=== PATIENT | male | born 1970 | race Caucasian/White ===

== ENCOUNTER 2018-03-04 21:55 | Inpatient (IN) | payer BC, OTHER ==
[~2018-03-04] VITALS: Ht 175.3 cm; Wt 107.8 kg
[2018-03-04] MEDS ORDERED: LACTATED RINGERS 1,000 ML IV ONE (22:20)
[2018-03-04] MEDS ORDERED: KETOROLAC 30 MG/ML VIAL IVP STA (22:20)
[2018-03-04] MEDS ORDERED: AMOX500C2 PO (22:22)
[2018-03-04] MEDS ORDERED: METR500T21 PO (22:22)
[2018-03-04 22:29] LABS: BASOPHILS % (AUTO) 0 % (0-10); EOSINOPHILS % (AUTO) 0 % (0-10); HEMATOCRIT 41 % (40-54); HEMOGLOBIN 14.3 G/DL (13.3-17.7); LYMPHOCYTES # (AUTO) 0.8 X 10^3 (1.0-4.0); LYMPHOCYTES % (AUTO) 6 % (12-44); MEAN CORPUSCULAR HEMOGLOBIN 30 PG (25-34); MEAN CORPUSCULAR HGB CONC 35 G/DL (32-36); MEAN CORPUSCULAR VOLUME 84 FL (80-99); MEAN PLATELET VOLUME 10.2 FL (7.4-10.4); MONOCYTES # (AUTO) 1.2 X 10^3 (0.0-1.0); MONOCYTES % (AUTO) 10 % (0-12); NEUTROPHILS # (AUTO) 10.4 X 10^3 (1.8-7.8); NEUTROPHILS % (AUTO) 84 % (42-75); PLATELET COUNT 286 10^3/uL (130-400); RED BLOOD COUNT 4.84 10^6/uL (4.35-5.85); RED CELL DISTRIBUTION WIDTH 12.1 % (10.0-14.5); WHITE BLOOD COUNT 12.3 10^3/uL (4.3-11.0)
[2018-03-04] MEDS ORDERED: CLINDAMYCIN 900 MG/50 ML IVPB 50 ML IV ONE (22:30)
[2018-03-04 22:46] LABS: ALANINE AMINOTRANSFERASE 15 U/L (0-55); ALBUMIN 3.8 GM/DL (3.2-4.5); ALKALINE PHOSPHATASE 106 U/L (40-136); BILIRUBIN,TOTAL 0.8 MG/DL (0.1-1.0); BUN/CREATININE RATIO 8; CALCIUM 9.7 MG/DL (8.5-10.1); CARBON DIOXIDE 15 MMOL/L (21-32); CHLORIDE 100 MMOL/L (98-107); CREATININE SERUM 0.93 MG/DL (0.60-1.30); GFR ESTIMATED > 60; POTASSIUM 4.2 MMOL/L (3.6-5.0); SODIUM 133 MMOL/L (135-145); TOTAL PROTEIN 7.7 GM/DL (6.4-8.2)
[2018-03-04 22:48] LABS: GLUCOSE 434 MG/DL (70-105)
[2018-03-04] MEDS ORDERED: NS IV 1000 ML 1,000 ML IV ONE (22:49)
[2018-03-04 22:51] LABS: BAND NEUTROPHILS 7 %; BASOPHILS % (MANUAL) 0 %; EOSINOPHILS % (MANUAL) 0 %; LYMPHOCYTES % (MANUAL) 7 %; MONOCYTES % (MANUAL) 6 %; NEUTROPHILS % (MANUAL) 80 %; RBC MORPH NORMAL
[2018-03-04] MEDS ORDERED: IOHEXOL 350 MG/ML 100 ML (OMNIPAQUE 350) VIAL IV ONE (23:00)
[2018-03-04] MEDS ORDERED: inSUlin (REGULAR) HUMAN 1 UNIT/0.01 ML (CHARGE PER UNIT) IV ONE (23:00)
[2018-03-04] MEDS ORDERED: NS 250 ML (IVPB) BAG IV ONE (23:00)
[2018-03-04 23:08] LABS: AMYLASE 15 U/L (25-125); LIPASE < 4 U/L (8-78)
[2018-03-04 23:19] LABS: ABG BASE EXCESS -6.1 MMOL/L (-2.5-2.5); ABG OXYGEN SATURATION 94 % (94-100); ABG PCO2 36 MMHG (35-45); ABG PO2 69 MMHG (79-93); ABG TCO2 19.9 MMOL/L (21.0-31.0)
[2018-03-04 23:21] LABS: ABG PH 7.33 (7.37-7.43); ALLENS TEST POSITIVE
[2018-03-04 23:22] LABS: INSPIRED O2 ROOM AIR; PATIENT TEMP 97.9; VENTILATOR NO
--- NOTE | 2018-03-04 23:56 | ED EENT ---
History of Present Illness General Chief Complaint: Dental Problems/Pain Stated Complaint: MOUTH INFECTION;FEVER Nursing Triage Note: c/o dental infection. patient reports being evaluated by dentist and having tooth removed and abscess drained. patient stated facial swelling keeps getting worse Source: patient, spouse Exam Limitations: no limitations History of Present Illness Date Seen by Provider: Mar 04, 2018 Time Seen by Provider: 22:20 Initial Comments PT ARRIVES VIA POV FROM HOME PT HAS HAD A "BAD TOOTH" FOR MANY MONTHS, HAS HAD INTERMITTENT PAIN IN TOOTH. PAIN HAS INCREASED AND BECOME CONSTANT A WEEK AGO NOTICED SUBJECTIVE FEVER/SWEATS/CHILLS SINCE FRIDAY--TOOK IBUPROFEN, BUT NONE SINCE FRIDAY HAS HAD NAUSEA SINCE FRIDAY BEGAN HAVING SWELLING TO LEFT SIDE OF FACE ON Friday03/01/18 SAW DENTIST AT [facility] ON FRIDAY, FRIDAY AND AGAIN TODAY HAS HAD 2 SHOTS OF ROCEPHIN WAS STARTED ON AMOXIL 500 MG TID ON FRIDAY ON FRIDAY, I&D WAS DONE AND A DRAIN PLACED, AND FLAGYL WAS ADDED TODAY TOOTH #19 WAS REMOVED, DRAIN REMOVED AND FLAGYL DOSE WAS DOUBLED. DENTIST CALLED TO CHECK ON PT THIS EVENING AND TOLD HER THAT HE JUST DID NOT FEEL GOOD AND WAS HAVING INCREASED SWELLING, SO WAS ADVISED TO GO TO ER. DENTIST CALLED PRIOR TO PT'S ARRIVAL AND INFORMED OF ALL OF THE ABOVE PT HAS BEEN ON ARP SINCE FRIDAY WELL, DOSE WAS INCREASED YESTERDAY. LAST DOSE WAS AT 2000 TONIGHT AND TOOK 2 PILLS. PCP: LATISHA---RARELY GOES THERE, ONLY GOES WHEN HE HAS A PROBLEM. HAS NEVER HAD A WELLNESS EXAM OR LAB Allergies and Home Medications Allergies Coded Allergies: No Known Drug Allergies (Unverified , 03/04/18) Patient Home Medication List Home Medication List Reviewed: Yes Review of Systems Constitutional: see HPI, chills, diaphoresis, fever, malaise Eyes: No Symptoms Reported Ears: No Symptoms Reported Nose: no symptoms reported Mouth: see HPI, pain, swelling Throat: no symptoms reported Respiratory: no symptoms reported Cardiovascular: no symptoms reported Gastrointestinal: see HPI; No abdominal pain; loss of appetite, nausea; No vomiting Musculoskeletal: no symptoms reported Skin: no symptoms reported Neurological: No Symptoms Reported Hematologic/Lymphatic: No Symptoms Reported Immunological/Allergic: no symptoms reported Past Abykrjj-Rpculg-Qsolbq Hx Patient Social History Alcohol Use: Occasionally Uses Recreational Drug Use: No Smoking Status: Former Smoker (OCCASIONALLY SMOKED IN THE PAST) Recent Foreign Travel: No Contact w/Someone Who Travel: No Recent Infectious Disease Expo: No Physical Abuse: No Sexual Abuse: No Past Medical History Surgeries: Yes (RIGHT INGUINAL HERNIA--AGE 5 ; EYE SURGERY--AGE 5) Abdominal, Adenoidectomy, Eye Surgery, Tonsillectomy Respiratory: No Cardiac: No Neurological: No Genitourinary: No Gastrointestinal: No Musculoskeletal: No Endocrine: No HEENT: No Cancer: No Psychosocial: No Nursing Suicide Risk Score: 0 Integumentary: No Blood Disorders: No Family Medical History Diabetes (MOM) Physical Exam Vital Signs Vital Signs - First Documented 03/04/18 22:14 Temp 97.9 Pulse 122 Resp 18 B/P (MAP) 128/95 (106) Pulse Ox 94 General Appearance: WD/WN, no apparent distress Eyes: bilateral eye normal inspection, bilateral eye PERRL, bilateral eye EOMI , bilateral eye other (GLASSES) Ears: bilateral ear auricle normal, bilateral ear canal normal, bilateral ear TM normal Nose: normal inspection Mouth/Throat: dental tenderness; No excessive drooling; trismus, other ( MASSIVE SWELLING TO LEFT SIDE OF FACE; EXTRACTION SITE TO LEFT LOWER FIRST MOLAR AREA WITH SIGNIFICANT SURROUNDING EDEMA AND ERYTHEMA. SWELLING TO LEFT SUBLINGUAL AREA. REST OF EXAM IS VERY LIMITED DUE TO PT NOT BEING ABLE TO OPEN MOUTH VERY MUCH. 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, no motor/sensory deficits, alert, normal mood/affect, oriented x 3 Skin: normal color, diaphoresis, other (WARM) Progress/Results/Core Measures Results/Orders Lab Results Laboratory Tests Test 03/04/18 22:20 03/04/18 23:10 Range/Units White Blood Count 12.3 H 4.3-11.0 10^3/uL Red Blood Count 4.84 4.35-5.85 10^6/uL Hemoglobin 14.3 13.3-17.7 G/DL Hematocrit 41 40-54 % Mean Corpuscular Volume 84 80-99 FL Mean Corpuscular Hemoglobin 30 25-34 PG Mean Corpuscular Hemoglobin Concent 35 32-36 G/DL Red Cell Distribution Width 12.1 10.0-14.5 % Platelet Count 286 130-400 10^3/uL Mean Platelet Volume 10.2 7.4-10.4 FL Neutrophils (%) (Auto) 84 H 42-75 % Lymphocytes (%) (Auto) 6 L 12-44 % Monocytes (%) (Auto) 10 0-12 % Eosinophils (%) (Auto) 0 0-10 % Basophils (%) (Auto) 0 0-10 % Neutrophils # (Auto) 10.4 H 1.8-7.8 X 10^3 Lymphocytes # (Auto) 0.8 L 1.0-4.0 X 10^3 Monocytes # (Auto) 1.2 H 0.0-1.0 X 10^3 Eosinophils # (Auto) 0.0 0.0-0.3 10^3/uL Basophils # (Auto) 0.0 0.0-0.1 10^3/uL Neutrophils % (Manual) 80 % Lymphocytes % (Manual) 7 % Monocytes % (Manual) 6 % Eosinophils % (Manual) 0 % Basophils % (Manual) 0 % Band Neutrophils 7 % Blood Morphology Comment NORMAL Sodium Level 133 L 135-145 MMOL/L Potassium Level 4.2 3.6-5.0 MMOL/L Chloride Level 100 98-107 MMOL/L Carbon Dioxide Level 15 L 21-32 MMOL/L Anion Gap 18 H 5-14 MMOL/L Blood Urea Nitrogen 7 7-18 MG/DL Creatinine 0.93 0.60-1.30 MG/DL Estimat Glomerular Filtration Rate > 60 BUN/Creatinine Ratio 8 Glucose Level 434 *H 70-105 MG/DL Lactic Acid Level 1.15 0.50-2.00 MMOL/L Calcium Level 9.7 8.5-10.1 MG/DL Total Bilirubin 0.8 0.1-1.0 MG/DL Aspartate Amino Transf (AST/SGOT) 19 5-34 U/L Alanine Aminotransferase (ALT/SGPT) 15 0-55 U/L Alkaline Phosphatase 106 40-136 U/L Total Protein 7.7 6.4-8.2 GM/DL Albumin 3.8 3.2-4.5 GM/DL Amylase Level 15 L 25-125 U/L Lipase < 4 L 8-78 U/L Blood Gas Puncture Site LEFT RADIAL Blood Gas Patient Temperature 97.9 Arterial Blood pH 7.33 *L 7.37-7.43 Arterial Blood Partial Pressure CO2 36 35-45 MMHG Arterial Blood Partial Pressure O2 69 L 79-93 MMHG Arterial Blood HCO3 19 L 23-27 MMOL/L Arterial Blood Total CO2 19.9 L 21.0-31.0 MMOL/L Arterial Blood Oxygen Saturation 94 94-100 % Arterial Blood Base Excess -6.1 L -2.5-2.5 MMOL/L Maximilian Test POSITIVE Blood Gas Ventilator Setting NO Blood Gas Inspired Oxygen ROOM AIR My Orders Orders - BETHANIE NORWOOD DO Saline Lock/Iv-Start (03/04/18 22:20) Cbc With Automated Diff (03/04/18 22:20) Comprehensive Metabolic Panel (03/04/18 22:20) Lactic Acid Analyzer (03/04/18 22:20) Blood Culture (03/04/18 22:20) Saline Lock/Iv-Start (03/04/18 22:20) Lactated Ringers (Lr 1000 Ml Iv Solution (03/04/18 22:20) Ketorolac Injection (Toradol Injection) (03/04/18 22:20) Clindamycin 900 Mg/50 Ml Ivpb (Cleocin P (03/04/18 22:30) Ct Maxillofacial W (03/04/18 22:20) Manual Differential (03/04/18 22:20) Amylase (03/04/18 22:49) Arterial Blood Gas (03/04/18 22:49) Lipase (03/04/18 22:49) Saline Lock/Iv-Start (03/04/18 22:49) Ns Iv 1000 Ml (Sodium Chloride 0.9%) (03/04/18 22:49) Insulin (Regular) Human (Humulin R (Per (03/04/18 23:00) Iohexol Injection (Omnipaque 350 Mg/Ml 1 (03/04/18 23:00) Ns (Ivpb) (Sodium Chloride 0.9%) (03/04/18 23:00) Hemoglobin A1c (03/04/18 23:08) Arterial Blood Draw (03/04/18 23:10) Medications Given in ED Current Medications Medications Dose Ordered Sig/Miguel Route Start Time Stop Time Status Last Admin Dose Admin Clindamycin Phosphate/Dextrose 50 ml @ 100 mls/hr ONCE ONCE IV 03/04/18 22:30 03/04/18 22:59 DC 6/20/18 23:01 100 MLS/HR Insulin Human Regular 20 unit ONCE ONCE IV 03/04/18 23:00 03/04/18 23:01 UNV 03/04/18 23:23 20 UNIT Iohexol 100 ml ONCE ONCE IV 03/04/18 23:00 03/04/18 23:01 UNV 03/04/18 22:53 100 ML Lactated Ringer's 1,000 ml @ 0 mls/hr Q0M ONCE IV 03/04/18 22:20 03/04/18 22:22 DC 03/04/18 22:28 0 MLS/HR Sodium Chloride 80 ml ONCE ONCE IV 03/04/18 23:00 03/04/18 23:01 UNV 03/04/18 22:53 80 ML Sodium Chloride 1,000 ml @ 0 mls/hr Q0M ONCE IV 03/04/18 22:49 03/04/18 22:50 UNV 03/04/18 23:22 0 MLS/HR Vital Signs/I&O 03/04/18 22:14 Temp 97.9 Pulse 122 Resp 18 B/P (MAP) 128/95 (106) Pulse Ox 94 Blood Pressure Mean: 106 Progress Progress Note : Progress Note NO DETERIORATION IN PT'S CONDITION DURING ER STAY PAIN IMPROVED WITH TORADOL Diagnostic Imaging Comments CT MAXILLOFACIALS--LEFT SUBMANDIBULAR FLUID AND AIR APPROXIMATELY 4 CM, CONCERNING FOR ABSCESS. FLUID/AIR EXTENDS INTO THE LEFT MASSETER MUSCLE. CANNOT EXCLUDE DEVELOPING SECONDARY INTRAMUSCULAR ABSCESS--PER [facility] VIA FAX @ [phone] Reviewed: Reviewed by Mi Departure Communication (Admissions) [id number]--SPOKE WITH DR. SHANNON, ACCEPTS PT FOR ADMIT. WILL CONSULT DR. HAMPTON [id number]--ATTEMPTED TO CONTACT DR. HAMPTON. MESSAGE LEFT ON MACHINE. Impression Primary Impression: Dental abscess Additional Impressions: Failure of outpatient treatment DENTAL ABSCESS EXTENDING INTO MASSETER MUSCLE NEW DX OF DIABETES MILD DKA Disposition: ADMITTED INPATIENT Condition: Improved Admissions Decision to Admit Reason: Admit from ER (General) Decision to Admit/Date: Mar 04, 2018 Time/Decision to Admit Time: 23:00 Departure-Patient Inst. Referrals: NO,LOCAL PHYSICIAN (PCP) Primary Care Physician Images Head/Face Progress SEE ADDITIONAL PAPER DIAGRAMS FOR IMAGES BETHANIE NORWOOD DO Mar 04, 2018 23:56
[2018-03-05] VITALS (11 sets, daily range): BP systolic 119–156; BP diastolic 69–88
[2018-03-05] MEDS ORDERED: ACETAMINOPHEN 500 MG TAB (TYLENOL) PO PRN (01:00)
[2018-03-05] MEDS: NS IV 1000 ML 1,000 ML IV SCH ×7 (02:03→23:17)
[2018-03-05] MEDS ORDERED: CLINDAMYCIN 900 MG/50 ML IVPB 50 ML IV ONE (04:53)
[2018-03-05] MEDS: KETOROLAC 30 MG/ML VIAL IVP PRN ×2 (04:59→12:08)
[2018-03-05] MEDS ORDERED: CLINDAMYCIN 900 MG/6ML (CLEOCIN) VIAL IV SCH (05:00)
[2018-03-05 06:04] LABS: BASOPHILS % (AUTO) 0 % (0-10); EOSINOPHILS % (AUTO) 0 % (0-10); HEMATOCRIT 36 % (40-54); HEMOGLOBIN 12.3 G/DL (13.3-17.7); LYMPHOCYTES # (AUTO) 0.9 X 10^3 (1.0-4.0); LYMPHOCYTES % (AUTO) 9 % (12-44); MEAN CORPUSCULAR HEMOGLOBIN 29 PG (25-34); MEAN CORPUSCULAR HGB CONC 34 G/DL (32-36); MEAN CORPUSCULAR VOLUME 85 FL (80-99); MEAN PLATELET VOLUME 10.3 FL (7.4-10.4); MONOCYTES # (AUTO) 1.1 X 10^3 (0.0-1.0); MONOCYTES % (AUTO) 12 % (0-12); NEUTROPHILS # (AUTO) 7.7 X 10^3 (1.8-7.8); NEUTROPHILS % (AUTO) 79 % (42-75); PLATELET COUNT 235 10^3/uL (130-400); RED BLOOD COUNT 4.23 10^6/uL (4.35-5.85); RED CELL DISTRIBUTION WIDTH 12.1 % (10.0-14.5); WHITE BLOOD COUNT 9.8 10^3/uL (4.3-11.0)
[2018-03-05] MEDS: inSUlin ASPART (NovoLOG) 1 UNIT/0.01 ML (CHARGE PER UNIT) SC SCH ×4 (06:30→21:47)
[2018-03-05 06:33] LABS: ALANINE AMINOTRANSFERASE 13 U/L (0-55); ALBUMIN 3.1 GM/DL (3.2-4.5); ALKALINE PHOSPHATASE 83 U/L (40-136); BILIRUBIN,TOTAL 0.5 MG/DL (0.1-1.0); BUN/CREATININE RATIO 8; CALCIUM 8.6 MG/DL (8.5-10.1); CARBON DIOXIDE 17 MMOL/L (21-32); CHLORIDE 103 MMOL/L (98-107); CREATININE SERUM 0.78 MG/DL (0.60-1.30); GFR ESTIMATED > 60; GLUCOSE 319 MG/DL (70-105); POTASSIUM 4.1 MMOL/L (3.6-5.0); SODIUM 134 MMOL/L (135-145)
[2018-03-05] MEDS: fentaNYL INJECTION 100 MCG/2 ML AMP IV PRN ×2 (06:34→08:45)
--- NOTE | 2018-03-05 07:23 | Diagnostic Imaging Report ---
PROCEDURE: CT maxillofacial with contrast. TECHNIQUE: After intravenous administration of contrast, axial images were obtained through the face and reformatted into coronal and sagittal planes. INDICATION: Dental infection There is large abscess in the left side of face adjacent to the mandible that measures 2 x 5 x 6 cm. There are air bubbles within this fluid collection. It is deep to the platysma which is bowed outward. There is edema in the subcutaneous soft tissues. Patient's had extraction of one of the left mandibular molars that appears to be the nidus of infection as there is gas in the socket. The gas extends along the submandibular space to the medial side of the mandible as well. IMPRESSION: Recent left mandibular tooth extraction with periodontal abscess formation. Dictated by: Dictated on workstation # [id number]
[2018-03-05] MEDS ORDERED: HYDR-3812 PO (08:31)
[2018-03-05] MEDS ORDERED: ASPI-992 PO (08:31)
[2018-03-05] MEDS: morphine INJ 4 MG/ML 1 ML (VIAL/SYRINGE) IVP PRN ×3 (10:26→21:47)
--- NOTE | 2018-03-05 10:30 | History & Physicial (CHS) ---
HPI History of Present Illness: 47 yo male presented to ER with severe facial swelling related to dental issue. He saw dentist at [facility] and did have tooth pulled and was on amoxicillin and flagyl and also received rocephin shots last 2 days but in spite of this, his face continued to swell to the point that last night it became hard to swallow so he came in. He was found to have blood sugar over 400 with no previous diagnosis of diabetes. His mother does have diabetes. He does not usually see a doctor and has not had labs done in years. 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 Patients Allergies have been reviewed. Allergies Coded Allergies: No Known Drug Allergies (Unverified , 03/04/18) YGR-Xhluom-Kmdyrt Hx Patient Social History Alcohol Use: Occasionally Uses Recreational Drug Use: No Smoking Status: Former Smoker (OCCASIONALLY SMOKED IN THE PAST) Recent Foreign Travel: No Contact w/other who traveled: No Recent Hopitalizations: No Recent Infectious Disease Expo: No Physical Abuse Screen: No Sexual Abuse: No Past Medical History PMHx: Denies PSurgHx: Tonsillectomy Eye surgery as a child Hernia repair as a child Family Medical History Significant Family History: Diabetes (MOM) Family History: Diabetes mellitus (MOTHER) Review of Systems ([facility]) Constitutional: fever, malaise EENTM: mouth pain, mouth swelling Respiratory: No cough, No short of breath Cardiovascular: No chest pain Gastrointestinal: No abdominal pain, No diarrhea; dysphagia; No nausea, No vomiting Genitourinary: No dysuria Musculoskeletal: No joint pain Skin: No rash Psychiatric/Neurological: No Symptoms Reported Reviewed Test Results Reviewed Test Results Lab Laboratory Tests Test 03/04/18 22:20 03/04/18 23:10 03/05/18 00:10 03/05/18 05:30 Range/Units White Blood Count 12.3 H 9.8 4.3-11.0 10^3/uL Red Blood Count 4.84 4.23 L 4.35-5.85 10^6/uL Hemoglobin 14.3 12.3 L 13.3-17.7 G/DL Hematocrit 41 36 L 40-54 % Mean Corpuscular Volume 84 85 80-99 FL Mean Corpuscular Hemoglobin 30 29 25-34 PG Mean Corpuscular Hemoglobin Concent 35 34 32-36 G/DL Red Cell Distribution Width 12.1 12.1 10.0-14.5 % Platelet Count 286 235 130-400 10^3/uL Mean Platelet Volume 10.2 10.3 7.4-10.4 FL Neutrophils (%) (Auto) 84 H 79 H 42-75 % Lymphocytes (%) (Auto) 6 L 9 L 12-44 % Monocytes (%) (Auto) 10 12 0-12 % Eosinophils (%) (Auto) 0 0 0-10 % Basophils (%) (Auto) 0 0 0-10 % Neutrophils # (Auto) 10.4 H 7.7 1.8-7.8 X 10^3 Lymphocytes # (Auto) 0.8 L 0.9 L 1.0-4.0 X 10^3 Monocytes # (Auto) 1.2 H 1.1 H 0.0-1.0 X 10^3 Eosinophils # (Auto) 0.0 0.0 0.0-0.3 10^3/uL Basophils # (Auto) 0.0 0.0 0.0-0.1 10^3/uL Neutrophils % (Manual) 80 % Lymphocytes % (Manual) 7 % Monocytes % (Manual) 6 % Eosinophils % (Manual) 0 % Basophils % (Manual) 0 % Band Neutrophils 7 % Blood Morphology Comment NORMAL Sodium Level 133 L 134 L 135-145 MMOL/L Potassium Level 4.2 4.1 3.6-5.0 MMOL/L Chloride Level 100 103 98-107 MMOL/L Carbon Dioxide Level 15 L 17 L 21-32 MMOL/L Anion Gap 18 H 14 5-14 MMOL/L Blood Urea Nitrogen 7 6 L 7-18 MG/DL Creatinine 0.93 0.78 0.60-1.30 MG/DL Estimat Glomerular Filtration Rate > 60 > 60 BUN/Creatinine Ratio 8 8 Glucose Level 434 *H 319 H 70-105 MG/DL Lactic Acid Level 1.15 0.50-2.00 MMOL/L Calcium Level 9.7 8.6 8.5-10.1 MG/DL Total Bilirubin 0.8 0.5 0.1-1.0 MG/DL Aspartate Amino Transf (AST/SGOT) 19 17 5-34 U/L Alanine Aminotransferase (ALT/SGPT) 15 13 0-55 U/L Alkaline Phosphatase 106 83 40-136 U/L Total Protein 7.7 6.0 L 6.4-8.2 GM/DL Albumin 3.8 3.1 L 3.2-4.5 GM/DL Amylase Level 15 L 25-125 U/L Lipase < 4 L 8-78 U/L Blood Gas Puncture Site LEFT RADIAL Blood Gas Patient Temperature 97.9 Arterial Blood pH 7.33 *L 7.37-7.43 Arterial Blood Partial Pressure CO2 36 35-45 MMHG Arterial Blood Partial Pressure O2 69 L 79-93 MMHG Arterial Blood HCO3 19 L 23-27 MMOL/L Arterial Blood Total CO2 19.9 L 21.0-31.0 MMOL/L Arterial Blood Oxygen Saturation 94 94-100 % Arterial Blood Base Excess -6.1 L -2.5-2.5 MMOL/L Maximilian Test POSITIVE Blood Gas Ventilator Setting NO Blood Gas Inspired Oxygen ROOM AIR Glucometer 324 H 70-110 MG/DL Test 03/05/18 06:06 Range/Units Glucometer 284 H 70-110 MG/DL Radiology CT max/face 03/04: DRAFT IMPRESSION: Recent left mandibular tooth extraction with periodontal abscess formation. Physical Exam-(CHC) Physical Exam Vital Signs VS - Last 72 Hours, by Label 03/04/18 03/05/18 03/05/18 03/05/18 22:14 00:11 00:30 01:00 Temp 97.9 98.4 Pulse 122 98 95 84 Resp 18 18 18 B/P (MAP) 128/95 (106) 109/78 129/79 (96) Pulse Ox 94 98 96 O2 Delivery Room Air 03/05/18 03/05/18 03/05/18 03/05/18 03:30 04:00 05:30 07:00 Temp 98.7 98.0 98.7 Pulse 79 85 85 84 Resp 16 16 18 B/P (MAP) 133/88 (103) 145/86 (105) 128/74 (92) Pulse Ox 96 95 O2 Delivery Room Air Room Air Room Air 03/05/18 03/05/18 03/05/18 08:00 09:00 10:00 Temp 97.8 98.5 99.1 Pulse 81 89 84 Resp 20 20 18 B/P (MAP) 119/77 (91) 145/79 (101) 156/78 (104) Pulse Ox 100 98 98 O2 Delivery Room Air Room Air Room Air Capillary Refill : Less Than 3 Seconds General Appearance: WD/WN, no apparent distress HEENT: other (marked left sided facial swelling with decreased mobility of mouth on left) Respiratory: lungs clear, normal breath sounds Cardiovascular: regular rate, rhythm, no murmur Neurologic/Psychiatric: alert, normal mood/affect Skin: normal color, warm/dry Assessment/Plan Assessment/Plan Admission Status: Inpatient Order (span 2 midnights) Reason for Inpatient Admission: Severe abscess likely requiring drainage, high risk for sepsis. Assessment & Plan Periodontal abscess- Dr. Singer consulted, appreciate recommendations. Clindamcyin IV. New diagnosis DMII- diabetic diet, sliding scale insulin. A1c pending to determine long-term plan of treatment. DVT ppx- SCDs Clinical Quality Measures DVT/VTE Risk/Contraindication: Risk Factor Score Per Nursin RFS Level Per Nursing on Admit: 2=Moderate DELFINA SNELL MD Mar 05, 2018 10:30
[2018-03-05] MEDS ORDERED: IOHEXOL 350 MG/ML 100 ML (OMNIPAQUE 350) VIAL IV ONE (10:45)
[2018-03-05] MEDS ORDERED: NS 250 ML (IVPB) BAG IV ONE (10:45)
[2018-03-05] MEDS: CLINDAMYCIN 900 MG/50 ML IVPB 50 ML IV SCH ×2 (11:19→17:27)
--- NOTE | 2018-03-05 11:44 | Diagnostic Imaging Report ---
INDICATION: Left dental abscess STUDY: Routine mandibular Panelipse view was obtained. COMPARISON: CT from 03/04/2018 FINDINGS: Bone mineralization is normal. There has been removal of the left mandibular first molar. No osseous erosion or acute fracture is seen. The temporomandibular joints appear normal in alignment. A small amount of soft tissue gas is seen underlying the body of the left mandible. There is blurring of the midline structures typical of panoramic technique. IMPRESSION: Lucency at the site of the left mandibular molar extraction with no other periapical lucencies seen. Soft tissue gas adjacent to the left mandible is consistent with abscess seen on the previous CT. Dictated by: Dictated on workstation # [id number]
[2018-03-05] MEDS: HYDROcodone/APAP 5 MG/325 MG (LORTAB) TAB PO PRN ×3 (14:34→21:47)
[2018-03-05] MEDS: ceFAZolin INJECTION 1,000 MG in NS (IVPB) 50 ML IV SCH (17:20)
[2018-03-06 00:20] VITALS: BP 115/67
[2018-03-06] MEDS: CLINDAMYCIN 900 MG/50 ML IVPB 50 ML IV SCH ×5 (01:02→23:33)
[2018-03-06] MEDS: ceFAZolin INJECTION 1,000 MG in NS (IVPB) 50 ML IV SCH ×4 (01:37→21:04)
[2018-03-06] MEDS: HYDROcodone/APAP 5 MG/325 MG (LORTAB) TAB PO PRN (01:37)
[2018-03-06] MEDS: morphine INJ 4 MG/ML 1 ML (VIAL/SYRINGE) IVP PRN ×3 (01:37→16:19)
[2018-03-06 04:04] VITALS: BP 118/70
[2018-03-06] MEDS: NS IV 1000 ML 1,000 ML IV SCH ×6 (04:32→23:32)
[2018-03-06] MEDS: inSUlin ASPART (NovoLOG) 1 UNIT/0.01 ML (CHARGE PER UNIT) SC SCH ×4 (06:24→21:15)
[2018-03-06 08:00] VITALS: BP 139/78
--- NOTE | 2018-03-06 10:48 | Progress Note (SOAP) ---
Subjective Subjective/Events-last exam Tmax 100.0. Swelling in face worse, difficult to open left eye now. Met with dispatcher radio this am. Review of Systems Date Seen by Provider: Mar 06, 2018 Time Seen by Provider: 09:36 Focused Exam Lactate Level 03/04/18 22:20: Lactic Acid Level 1.15 Objective Exam Last Set of Vital Signs Vital Signs Date Time Temp Pulse Resp B/P (MAP) Pulse Ox O2 Delivery O2 Flow Rate FiO2 03/06/18 08:00 98.6 85 20 139/78 (98) 93 Room Air Capillary Refill : Less Than 3 Seconds I&O Intake and Output 03/06/18 00:00 Intake Total 6700 ml Balance 6700 ml Intake Oral 1550 ml IV Total 5150 ml # Voids 6 Daily Weight Change No General: Alert, No Acute Distress Lungs: Clear to Auscultation, Normal Air Movement Heart: Regular Rate, No Murmurs Psych/Mental Status: Mood NL Results/Procedures Lab Laboratory Tests 03/05/18 10:49: Glucometer 294H 03/05/18 15:42: Glucometer 308H 03/05/18 20:27: Glucometer 213H 03/06/18 05:22: Glucometer 215H Microbiology 03/04/18 Blood Culture - Preliminary, Resulted No growth Radiology CT max/face 03/04: DRAFT IMPRESSION: Recent left mandibular tooth extraction with periodontal abscess formation. Assessment/Plan Assessment/Plan Assessment & Plan Periodontal abscess- Dr. Singer consulted, appreciate recommendations. Clindamcyin IV. 03/06 to OR today, cefazolin added per Dr. Singer New diagnosis DMII- diabetic diet, sliding scale insulin. A1c pending to determine long-term plan of treatment. 03/06- A1c above 12, discussed starting insulin and backing down to oral after 3 month treatment if possible. Start levemir 10 units daily today and metformin. DVT ppx- SCDs Clinical Quality Measures DVT/VTE Risk/Contraindication: Risk Factor Score Per Nursin RFS Level Per Nursing on Admit: 2=Moderate DELFINA SHANNON MD Mar 06, 2018 10:48 am
[2018-03-06] MEDS ORDERED: proPOfol 200 MG/20 ML (DIPRIVAN) VIAL IV ONE (11:45)
[2018-03-06] MEDS ORDERED: GLYCOPYRROLATE 0.2 MG/ML (ROBINUL) 2 ML VIAL ONE (11:45)
[2018-03-06] MEDS ORDERED: NEOSTIGMINE 1 MG/ML 5 ML SYRINGE ONE (11:45)
[2018-03-06] MEDS ORDERED: ROCURONIUM 10 MG/ML 5 ML SYRINGE IV ONE (11:45)
[2018-03-06] MEDS ORDERED: ONDANSETRON 4 MG/2 ML (SDV) Z0FRAN ONE (11:45)
[2018-03-06] MEDS ORDERED: MIDAZOLAM 2 MG/2 ML (VERSED) VIAL ONE (11:45)
[2018-03-06] MEDS ORDERED: fentaNYL INJECTION 100 MCG/2 ML AMP ONE (11:45)
[2018-03-06] MEDS ORDERED: LIDOCAINE PF 2% 5 ML (XYLOCAINE) VIAL ONE (11:45)
[2018-03-06] MEDS ORDERED: SEVOFLURANE (ULTANE) 15 ML INHAL SOLN ONE ×4 (11:45→13:01)
[2018-03-06] MEDS ORDERED: LIDOCAINE/EPI 2% 1:100,00 (XYLOCAINE) 20 ML VIAL ONE (11:46)
[2018-03-06] MEDS ORDERED: ROPIVACAINE 5MG/ML 30ML VIAL ONE (11:46)
[2018-03-06] MEDS ORDERED: NEO/POLY/BAC (NEOSPORIN) OINT 15 GM TUBE ONE (11:46)
--- NOTE | 2018-03-06 12:11 | Progress Note-Pre Operative ---
Pre-Operative Progress Note H&P Reviewed The H&P was reviewed, patient examined and no changes noted. Date Seen by Provider: Mar 06, 2018 Time Seen by Provider: 11:30 Date H&P Reviewed: Mar 06, 2018 Time H&P Reviewed: 12:00 Pre-Operative Diagnosis: left buccal space abcess, left submandibular abcess. PHIL HAMPTON DDS Mar 06, 2018 12:11 pm
[2018-03-06] MEDS ORDERED: HYDROmorphone 1 MG/ML (DILAUDID) 1 ML SYRINGE IV PRN (12:15)
[2018-03-06] MEDS ORDERED: DEXAMETHASONE 4 MG/ML SDV (DECADRON) IV SCH (12:15)
[2018-03-06] MEDS ORDERED: SUGAMMADEX 500 MG/5 ML VIAL (BRIDION) IV ONE (12:20)
[2018-03-06] MEDS ORDERED: morphine INJ 10 MG/ML 1ML (SYR OR VIAL) IVP PRN (13:15)
[2018-03-06] MEDS: HYDROmorphone 1 MG/ML (DILAUDID) 1 ML SYRINGE IV PRN ×3 (13:15→13:40)
[2018-03-06] MEDS ORDERED: ONDANSETRON 4 MG/2 ML (SDV) Z0FRAN IVP PRN (13:15)
[2018-03-06] MEDS ORDERED: LACTATED RINGERS 1,000 ML IV ONE (13:52)
[2018-03-06 14:15] VITALS: BP 150/88
[2018-03-06 16:15] VITALS: BP 143/84
[2018-03-06] MEDS: KETOROLAC 30 MG/ML VIAL IVP PRN (16:21)
[2018-03-06] MEDS: DEXAMETHASONE 4 MG/ML SDV (DECADRON) IV SCH ×3 (17:17→23:33)
[2018-03-06 19:20] VITALS: BP 122/73
[2018-03-06] MEDS ORDERED: inSUlin DETERMIR 1 UNIT/0.01 ML (LEVEMIR) CHARGE PER UNIT SQ SCH (21:00)
[2018-03-07 00:47] VITALS: BP 111/74
[2018-03-07] MEDS: NS IV 1000 ML 1,000 ML IV SCH ×3 (03:49→20:03)
[2018-03-07 04:38] VITALS: BP 111/68
[2018-03-07] MEDS: DEXAMETHASONE 4 MG/ML SDV (DECADRON) IV SCH ×3 (05:18→17:10)
[2018-03-07] MEDS: ceFAZolin INJECTION 1,000 MG in NS (IVPB) 50 ML IV SCH ×3 (05:19→21:41)
[2018-03-07 05:37] LABS: HEMOGLOBIN 12.2 G/DL (13.3-17.7); MEAN PLATELET VOLUME 10.4 FL (7.4-10.4); RED BLOOD COUNT 4.16 10^6/uL (4.35-5.85); RED CELL DISTRIBUTION WIDTH 12.3 % (10.0-14.5); WHITE BLOOD COUNT 8.9 10^3/uL (4.3-11.0)
[2018-03-07 05:54] LABS: BUN/CREATININE RATIO 15; CALCIUM 8.2 MG/DL (8.5-10.1); CARBON DIOXIDE 15 MMOL/L (21-32); CHLORIDE 105 MMOL/L (98-107); CHOLESTEROL 137 MG/DL (< 200); CREATININE SERUM 0.81 MG/DL (0.60-1.30); GFR ESTIMATED > 60; GLUCOSE 318 MG/DL (70-105); HDL CHOLESTEROL 16 MG/DL (40-60); SODIUM 136 MMOL/L (135-145); TRIGLYCERIDES 203 MG/DL (<150); VLDL CHOLESTEROL 41 MG/DL (5-40)
[2018-03-07] MEDS: inSUlin ASPART (NovoLOG) 1 UNIT/0.01 ML (CHARGE PER UNIT) SC SCH ×4 (06:08→21:42)
[2018-03-07] MEDS: CLINDAMYCIN 900 MG/50 ML IVPB 50 ML IV SCH ×3 (06:08→17:27)
[2018-03-07] MEDS: metFORMIN 500 MG (GLUCOPHAGE) TAB PO SCH ×2 (06:08→17:26)
[2018-03-07 08:00] VITALS: BP 132/75
--- NOTE | 2018-03-07 08:32 | Anesthesia-General Post-Op ---
General Patient Condition Mental Status/LOC: Same as Preop Cardiovascular: Satisfactory Nausea/Vomiting: Absent Respiratory: Satisfactory Pain: Controlled Complications: Absent Post Op Complications Complications None Follow Up Care/Instructions Patient Instructions None needed. Anesthesia/Patient Condition Patient Condition Patient is doing well, no complaints, stable vital signs, no apparent adverse anesthesia problems. No complications reported per nursing. [place] [facility] [place]: Yes SHASHANK VASQUEZ CRNA Mar 07, 2018 08:32
[2018-03-07] MEDS: KETOROLAC 30 MG/ML VIAL IVP PRN (09:55)
[2018-03-07] MEDS: HYDROcodone/APAP 7.5MG-325 MG/15 ML (LORTAB) UDC PO PRN ×3 (10:00→21:47)
[2018-03-07 12:00] VITALS: BP 135/78
--- NOTE | 2018-03-07 13:02 | Progress Note (SOAP) ---
Subjective Subjective/Events-last exam Patient without complaints this afternoon. He just returned from the shower. He still has one surgical drain remaining, which is planned to be discontinued at 1600. Significant other asking about when he might be discharged. No acute events overnight. Afebrile. Review of Systems Date Seen by Provider: Mar 07, 2018 Time Seen by Provider: 14:36 General: No Chills, No Night Sweats, No Fatigue HEENT: No Head Aches, No Ear Pain, No Dysphasia Pulmonary: No Dyspnea, No Cough Cardiovascular: No: Chest Pain, Palpitations Gastrointestinal: No: Nausea, Vomiting Genitourinary: No Dysuria, No Hematuria Neurological: No: Weakness, Numbness, Incoordination, Confusion, Seizures Focused Exam Lactate Level 03/04/18 22:20: Lactic Acid Level 1.15 Objective Exam Last Set of Vital Signs Vital Signs Date Time Temp Pulse Resp B/P (MAP) Pulse Ox O2 Delivery O2 Flow Rate FiO2 03/07/18 12:00 98.1 74 24 135/78 (97) 97 Room Air Capillary Refill : Less Than 3 Seconds I&O Intake and Output 03/07/18 00:00 Intake Total 4030 ml Balance 4030 ml Intake Oral 930 ml IV Total 3100 ml # Voids 5 General: Alert, Oriented X3, Cooperative, No Acute Distress HEENT: EOMI, Mucous Memb Moist/[place], Other (left facial swelling; wound dressing dry and intact, not removed at the time of exam) Neck: Supple, No Thyromegaly Lungs: Clear to Auscultation, Normal Air Movement Heart: Regular Rate, Normal S1, Normal S2 Abdomen: Normal Bowel Sounds, Soft, No Tenderness, No Hepatosplenomegaly Extremities: No Clubbing, No Cyanosis, Normal Pulses Skin: No Rashes, No Significant Lesion Neuro: Normal Gait, Normal Speech, Normal Tone, Sensation Intact, Cranial Nerves 3-12 NL Psych/Mental Status: Mental Status NL, Mood NL Results/Procedures Lab Laboratory Tests 03/06/18 13:26: Glucometer 184H 03/06/18 16:14: Glucometer 195H 03/06/18 21:14: Glucometer 352H 03/07/18 04:38: White Blood Count 8.9, Red Blood Count 4.16L, Hemoglobin 12.2L, Hematocrit 36L, Mean Corpuscular Volume 86, Mean Corpuscular Hemoglobin 29, Mean Corpuscular Hemoglobin Concent 34, Red Cell Distribution Width 12.3, Platelet Count 292, Mean Platelet Volume 10.4, Sodium Level 136, Potassium Level 4.0, Chloride Level 105, Carbon Dioxide Level 15L, Anion Gap 16H, Blood Urea Nitrogen 12, Creatinine 0.81, Estimat Glomerular Filtration Rate > 60, BUN/Creatinine Ratio 15, Glucose Level 318H, Calcium Level 8.2L, Triglycerides Level 203H, Cholesterol Level 137, LDL Cholesterol Direct 80, VLDL Cholesterol 41H, HDL Cholesterol 16L 03/07/18 11:09: Glucometer 276H Microbiology 03/04/18 Blood Culture - Preliminary, Resulted No growth 03/05/18 MRSA Screen - Final, Complete MRSA not isolated 03/06/18 Gram Stain - Final, Resulted 03/06/18 Anaerobic Culture, Resulted Pending 03/06/18 Surgical Culture - Preliminary, Resulted See Comments Radiology CT max/face 03/04: DRAFT IMPRESSION: Recent left mandibular tooth extraction with periodontal abscess formation. Assessment/Plan Assessment/Plan Assessment & Plan Periodontal abscess- Dr. Singer consulted, appreciate recommendations. Clindamcyin IV. 03/06 to OR today, cefazolin added per Dr. Singer 03/07 -POD 1 s/p I&D per Dr. Singer -Clindamycin Day 3 -Ancef Day 2 -WBC 12.3 --> 9.8 --> 9.9 -swelling significantly improved per patient and significant other -patient feels pain is well controlled with current medication -cultures obtained in OR pending New diagnosis DMII- diabetic diet, sliding scale insulin. A1c pending to determine long-term plan of treatment. 03/06- A1c above 12, discussed starting insulin and backing down to oral after 3 month treatment if possible. Start levemir 10 units daily today and metformin. 03/07 -glucose over last 24 hours: 184 - 195 - 352 - 318 - 276 -patient on IV decadron, likely the cause of significant elevation in sugars noted over the last 24 hours -increase levemir to 20 units at HS -continue metformin -continue sliding scale with meals and accuchecks AC and HS Anemia 03/07 -Hgb 14.3 --> 12.3 --> 12.2 -Asymptomatic -likely at least somewhat dilutional in nature Hypocalcemia 03/07 -8.2 today, recheck labs in AM Elevated Triglycerides 03/07 Fasting Lipid Panel: Triglycerides 203 Cholesterol 137 LDL 80 VLDL 41 HDL 16 Obesity, BMI 33.5 DVT ppx- SCDs Patient is doing well. Likely will be able to discharge with PO medications in 24-48 hours, pending culture results and clearance from Dr. Singer. Clinical Quality Measures DVT/VTE Risk/Contraindication: Risk Factor Score Per Nursin RFS Level Per Nursing on Admit: 2=Moderate Copy Copies To 1: [facility]/JUSTIN SCHULZ DO Mar 07, 2018 13:02
[2018-03-07 15:56] VITALS: BP 130/79
[2018-03-07] MEDS ORDERED: chlorproMAZINE 25 MG (THORAZINE) TAB PO ONE ×2 (17:45→19:57)
[2018-03-07] MEDS ORDERED: chlorproMAZINE 25MG/ML INJ (THORAZINE) 2 ML AMP ONE (19:54)
[2018-03-07 20:40] VITALS: BP 138/80
[2018-03-07] MEDS: inSUlin DETERMIR 1 UNIT/0.01 ML (LEVEMIR) CHARGE PER UNIT SQ SCH (21:42)
[2018-03-08] MEDS: NS IV 1000 ML 1,000 ML IV SCH ×3 (00:12→19:45)
[2018-03-08] MEDS: DEXAMETHASONE 4 MG/ML SDV (DECADRON) IV SCH ×5 (00:13→23:06)
[2018-03-08] MEDS: CLINDAMYCIN 900 MG/50 ML IVPB 50 ML IV SCH ×5 (00:13→23:06)
[2018-03-08 00:35] VITALS: BP 106/64
[2018-03-08 04:37] VITALS: BP 119/67
[2018-03-08 05:16] LABS: BASOPHILS % (AUTO) 0 % (0-10); EOSINOPHILS % (AUTO) 0 % (0-10); HEMATOCRIT 33 % (40-54); HEMOGLOBIN 11.3 G/DL (13.3-17.7); LYMPHOCYTES # (AUTO) 1.3 X 10^3 (1.0-4.0); LYMPHOCYTES % (AUTO) 10 % (12-44); MEAN CORPUSCULAR HEMOGLOBIN 30 PG (25-34); MEAN CORPUSCULAR HGB CONC 34 G/DL (32-36); MEAN CORPUSCULAR VOLUME 87 FL (80-99); MEAN PLATELET VOLUME 10.5 FL (7.4-10.4); MONOCYTES # (AUTO) 0.4 X 10^3 (0.0-1.0); MONOCYTES % (AUTO) 3 % (0-12); NEUTROPHILS # (AUTO) 11.3 X 10^3 (1.8-7.8); NEUTROPHILS % (AUTO) 87 % (42-75); PLATELET COUNT 326 10^3/uL (130-400); RED BLOOD COUNT 3.83 10^6/uL (4.35-5.85); RED CELL DISTRIBUTION WIDTH 12.1 % (10.0-14.5)
[2018-03-08 05:46] LABS: BUN/CREATININE RATIO 21; CALCIUM 8.5 MG/DL (8.5-10.1); CARBON DIOXIDE 15 MMOL/L (21-32); CHLORIDE 109 MMOL/L (98-107); CREATININE SERUM 0.78 MG/DL (0.60-1.30); GFR ESTIMATED > 60; GLUCOSE 327 MG/DL (70-105); POTASSIUM 4.3 MMOL/L (3.6-5.0); SODIUM 135 MMOL/L (135-145)
[2018-03-08] MEDS: ceFAZolin INJECTION 1,000 MG in NS (IVPB) 50 ML IV SCH ×3 (05:59→21:25)
[2018-03-08] MEDS: inSUlin ASPART (NovoLOG) 1 UNIT/0.01 ML (CHARGE PER UNIT) SC SCH ×6 (06:00→21:25)
[2018-03-08] MEDS: metFORMIN 500 MG (GLUCOPHAGE) TAB PO SCH ×2 (06:00→16:53)
[2018-03-08 08:00] VITALS: BP 152/70
[2018-03-08] MEDS ORDERED: inSUlin ASPART (NovoLOG) 1 UNIT/0.01 ML (CHARGE PER UNIT) SC ONE (08:30)
[2018-03-08] MEDS: HYDROcodone/APAP 7.5MG-325 MG/15 ML (LORTAB) UDC PO PRN ×2 (10:52→21:37)
[2018-03-08] MEDS: KETOROLAC 30 MG/ML VIAL IVP PRN (12:30)
[2018-03-08] MEDS: fluCOnazole (DIFLUCAN) 10MG/ML 35ML BTL PO SCH (14:46)
[2018-03-08 15:40] VITALS: BP 162/80
--- NOTE | 2018-03-08 18:29 | Progress Note (SOAP) ---
Subjective Subjective/Events-last exam Patient having some pain today, but has not had any pain medication in several hours. Had a bout of hiccups yesterday, but responded well to one dose of chlorpromazine. Slept very well last night. Is hoping to go home soon. Review of Systems Date Seen by Provider: Mar 08, 2018 Time Seen by Provider: 10:30 General: No Chills, No Night Sweats HEENT: No Head Aches, No Dysphasia Pulmonary: No Dyspnea, No Cough Cardiovascular: No: Chest Pain, Palpitations Gastrointestinal: No: Nausea, Vomiting, Abdominal Pain Genitourinary: No Dysuria, No Hematuria Neurological: No: Weakness, Numbness, Incoordination, Confusion, Seizures Objective Exam Last Set of Vital Signs Vital Signs Date Time Temp Pulse Resp B/P (MAP) Pulse Ox O2 Delivery O2 Flow Rate FiO2 03/08/18 15:40 97.2 52 18 162/80 (107) 94 Room Air Capillary Refill : Less Than 3 Seconds I&O Intake and Output 03/08/18 00:00 Intake Total 3310 ml Balance 3310 ml Intake Oral 2060 ml IV Total 1250 ml # Voids 7 General: Alert, Oriented X3, Cooperative, No Acute Distress HEENT: EOMI, Mucous Memb Moist/[place], Other (left sided facial swelling) Neck: Supple, No Thyromegaly Lungs: Clear to Auscultation, Normal Air Movement Heart: Regular Rate, Normal S1, Normal S2, No Murmurs Abdomen: Normal Bowel Sounds, Soft, No Tenderness, No Hepatosplenomegaly Extremities: No Clubbing, No Cyanosis, Normal Pulses Skin: No Rashes Neuro: Normal Speech, Normal Tone, Sensation Intact, Cranial Nerves 3-12 NL Psych/Mental Status: Mental Status NL, Mood NL Results/Procedures Lab Laboratory Tests 03/07/18 20:17: Glucometer 385H 03/08/18 04:09: White Blood Count 13.0H, Red Blood Count 3.83L, Hemoglobin 11.3L, Hematocrit 33L , Mean Corpuscular Volume 87, Mean Corpuscular Hemoglobin 30, Mean Corpuscular Hemoglobin Concent 34, Red Cell Distribution Width 12.1, Platelet Count 326, Mean Platelet Volume 10.5H, Neutrophils (%) (Auto) 87H, Lymphocytes (%) (Auto) 10L, Monocytes (%) (Auto) 3, Eosinophils (%) (Auto) 0, Basophils (%) (Auto) 0, Neutrophils # (Auto) 11.3H, Lymphocytes # (Auto) 1.3, Monocytes # (Auto) 0.4, Eosinophils # (Auto) 0.0, Basophils # (Auto) 0.0, Sodium Level 135, Potassium Level 4.3, Chloride Level 109H, Carbon Dioxide Level 15L, Anion Gap 11, Blood Urea Nitrogen 16, Creatinine 0.78, Estimat Glomerular Filtration Rate > 60, BUN/ Creatinine Ratio 21, Glucose Level 327H, Calcium Level 8.5 03/08/18 12:14: Glucometer 223H 03/08/18 15:41: Glucometer 266H Microbiology 03/04/18 Blood Culture - Preliminary, Resulted No growth 03/05/18 MRSA Screen - Final, Complete MRSA not isolated 03/06/18 Gram Stain - Final, Resulted 03/06/18 Anaerobic Culture - Preliminary, Resulted No anaerobes isolated 03/06/18 Surgical Culture - Preliminary, Resulted Presumptive Capri Albicans Strep Or Related Genus Gram Positive Elliott Radiology CT max/face 03/04: DRAFT IMPRESSION: Recent left mandibular tooth extraction with periodontal abscess formation. Assessment/Plan Assessment/Plan Assessment & Plan Periodontal abscess- Dr. Singer consulted, appreciate recommendations. Clindamcyin IV. 03/06 to OR today, cefazolin added per Dr. Singer 03/07 -POD 1 s/p I&D per Dr. Singer -Clindamycin Day 3 -Ancef Day 2 -WBC 12.3 --> 9.8 --> 9.9 -swelling significantly improved per patient and significant other -patient feels pain is well controlled with current medication -cultures obtained in OR pending 03/08 -POD 2 -Ancef Day 3, Clindamycin Day 4 -WBC 12.3 --> 9.8 --> 9.9 --> 13 -Afebrile -cultures obtained from I&D show WBC, yeast, gram neg rods, gram pos rods, gram pos cocci in chains - further ID and sensitivity pending -blood cultures with no growth to date -anticipate that pt will be ready for discharge on oral abx in the next 24 hours New diagnosis DMII- diabetic diet, sliding scale insulin. A1c pending to determine long-term plan of treatment. 03/06- A1c above 12, discussed starting insulin and backing down to oral after 3 month treatment if possible. Start levemir 10 units daily today and metformin. 03/07 -glucose over last 24 hours: 184 195 - 055 - 142 - 243 -patient on IV decadron, likely the cause of significant elevation in sugars noted over the last 24 hours -increase levemir to 20 units at HS -continue metformin -continue sliding scale with meals and accuchecks and HS 03/08 -glucose over last 24 hours: 346 - 938 - 876 - 574 - 325 -suspect that IV decadron is a contributor to pt's significantly elevated sugars -start 10 units of novalog with meals plus sliding scale, continue metformin and 20 units levemir at HS -discussed with patient that he would need to be discharged on insulin, given that he is newly diabetic would recommend discharge on standard mealtime dose and levemir instead of sliding scale, with office follow up for adjustment as pt continues to recover from infection and hyperglycemic effect of decadron wears off Anemia 03/07 -Hgb 14.3 --> 12.3 --> 12.2 -Asymptomatic -likely at least somewhat dilutional in nature 03/08 -Hgb 14.3 --> 12.3 --> 12.2 --> 11.3 -remains asymptomatic Hypocalcemia 03/07 -8.2 today, recheck labs in AM 03/08 -8.2 --> 8.5 RESOLVED Elevated Triglycerides 03/07 Fasting Lipid Panel: Triglycerides 203 Cholesterol 137 LDL 80 VLDL 41 HDL 16 Obesity, BMI 33.5 Bradycardia 03/08 -report from manager shift nurse that patient was bradycardic while asleep and she was not sure about the rhythm -telemetry reviewed, pt in sinus bradycardia with BBB at 0100, otherwise sinus bradycardia -no history of HTN or heart issues -telemetry discontinued, asymptomatic bradycardia while asleep in a reasonably healthy middle aged man is not significant cause for concern; this patient has been on telemetry since admission without significant incident DVT ppx- SCDs Patient is doing well. Likely will be able to discharge with PO medications in 24-48 hours, pending culture results and clearance from Dr. Singer. Clinical Quality Measures DVT/VTE Risk/Contraindication: Risk Factor Score Per Nursin RFS Level Per Nursing on Admit: 2=Moderate Copy Copies To 1: [facility]/JUSTIN SCHULZ DO Mar 08, 2018 18:28
[2018-03-08] MEDS: inSUlin DETERMIR 1 UNIT/0.01 ML (LEVEMIR) CHARGE PER UNIT SQ SCH (21:26)
[2018-03-08] MEDS: chlorproMAZINE 25 MG (THORAZINE) TAB PO PRN (21:37)
[2018-03-09] VITALS: BP 154/87
[2018-03-09] MEDS: NS IV 1000 ML 1,000 ML IV SCH (05:14)
[2018-03-09] MEDS: CLINDAMYCIN 900 MG/50 ML IVPB 50 ML IV SCH ×2 (05:14→11:24)
[2018-03-09] MEDS: DEXAMETHASONE 4 MG/ML SDV (DECADRON) IV SCH ×2 (05:16→11:23)
[2018-03-09] MEDS: inSUlin ASPART (NovoLOG) 1 UNIT/0.01 ML (CHARGE PER UNIT) SC SCH ×4 (05:33→12:53)
[2018-03-09 06:01] LABS: BASOPHILS % (AUTO) 0 % (0-10); EOSINOPHILS % (AUTO) 0 % (0-10); HEMATOCRIT 35 % (40-54); HEMOGLOBIN 11.8 G/DL (13.3-17.7); LYMPHOCYTES # (AUTO) 1.8 X 10^3 (1.0-4.0); LYMPHOCYTES % (AUTO) 14 % (12-44); MEAN CORPUSCULAR HEMOGLOBIN 29 PG (25-34); MEAN CORPUSCULAR HGB CONC 34 G/DL (32-36); MEAN CORPUSCULAR VOLUME 86 FL (80-99); MEAN PLATELET VOLUME 10.1 FL (7.4-10.4); MONOCYTES # (AUTO) 0.5 X 10^3 (0.0-1.0); MONOCYTES % (AUTO) 4 % (0-12); NEUTROPHILS # (AUTO) 10.5 X 10^3 (1.8-7.8); NEUTROPHILS % (AUTO) 82 % (42-75); PLATELET COUNT 460 10^3/uL (130-400); RED BLOOD COUNT 4.09 10^6/uL (4.35-5.85); RED CELL DISTRIBUTION WIDTH 12.4 % (10.0-14.5); WHITE BLOOD COUNT 12.8 10^3/uL (4.3-11.0)
[2018-03-09 06:19] LABS: BUN/CREATININE RATIO 22; CALCIUM 8.3 MG/DL (8.5-10.1); CARBON DIOXIDE 19 MMOL/L (21-32); CHLORIDE 111 MMOL/L (98-107); CREATININE SERUM 0.76 MG/DL (0.60-1.30); GFR ESTIMATED > 60; GLUCOSE 99 MG/DL (70-105); POTASSIUM 3.5 MMOL/L (3.6-5.0); SODIUM 141 MMOL/L (135-145)
[2018-03-09] MEDS: ceFAZolin INJECTION 1,000 MG in NS (IVPB) 50 ML IV SCH ×2 (06:24→13:58)
[2018-03-09] MEDS: metFORMIN 500 MG (GLUCOPHAGE) TAB PO SCH (06:24)
[2018-03-09 08:25] VITALS: BP 139/62
[2018-03-09] MEDS: HYDROcodone/APAP 7.5MG-325 MG/15 ML (LORTAB) UDC PO PRN (09:18)
[2018-03-09] MEDS: fluCOnazole (DIFLUCAN) 10MG/ML 35ML BTL PO SCH (09:26)
--- NOTE | 2018-03-09 09:26 | Progress Note-Hospitalist ---
Objective Exam Vital Signs Vital Signs Date Time Temp Pulse Resp B/P (MAP) Pulse Ox O2 Delivery O2 Flow Rate FiO2 03/09/18 08:25 96.2 40 12 139/62 (87) 97 Room Air Capillary Refill : Less Than 3 Seconds Results/Procedures Lab Laboratory Tests 03/09/18 05:30 Patient resulted labs reviewed. Clinical Quality Measures DVT/VTE Risk/Contraindication: Risk Factor Score Per Nursin RFS Level Per Nursing on Admit: 2=Moderate MILI JONES DO Mar 09, 2018 09:26
--- NOTE | 2018-03-09 10:34 | Discharge Summary-Hospitalist ---
Diagnosis/Chief Complaint Date of Admission Mar 04, 2018 at 23:00 Date of Discharge Discharge Date: Mar 09, 2018 Discharge Diagnosis (1) Dental abscess Status: Acute (2) Newly diagnosed diabetes Status: Acute (3) Failure of outpatient treatment Status: Acute (4) Diabetes mellitus, type 2 Status: Chronic Discharge Summary Discharge Physical Exam Allergies: Coded Allergies: No Known Drug Allergies (Unverified , 03/04/18) Vitals & I&Os Vital Signs Date Time Temp Pulse Resp B/P (MAP) Pulse Ox O2 Delivery O2 Flow Rate FiO2 03/09/18 08:25 96.2 40 12 139/62 (87) 97 Room Air General Appearance: Alert, Oriented X3, Cooperative Hospital Course Hospital course: Patient had an uneventful hospital course he was admitted for dental abscess that was drained by Dr. Singer and patient was placed on empiric antibiotics. Pain medication was given with good results. New-onset diabetes was managed by insulin regimen and he will have a close follow-up a [facility] for diabetes management and Dr. Bell for dental abscess. Dr. Singer graciously chose the antibiotics he will be discharged on patient was deemed stable for discharge. Labs (last 24 hrs) Laboratory Tests 03/08/18 12:14: Glucometer 223H 03/08/18 15:41: Glucometer 266H 03/08/18 20:54: Glucometer 236H 03/09/18 05:27: Glucometer 97 03/09/18 05:30: White Blood Count 12.8H, Red Blood Count 4.09L, Hemoglobin 11.8L, Hematocrit 35L , Mean Corpuscular Volume 86, Mean Corpuscular Hemoglobin 29, Mean Corpuscular Hemoglobin Concent 34, Red Cell Distribution Width 12.4, Platelet Count 460H, Mean Platelet Volume 10.1, Neutrophils (%) (Auto) 82H, Lymphocytes (%) (Auto) 14 , Monocytes (%) (Auto) 4, Eosinophils (%) (Auto) 0, Basophils (%) (Auto) 0, Neutrophils # (Auto) 10.5H, Lymphocytes # (Auto) 1.8, Monocytes # (Auto) 0.5, Eosinophils # (Auto) 0.0, Basophils # (Auto) 0.0, Sodium Level 141, Potassium Level 3.5L, Chloride Level 111H, Carbon Dioxide Level 19L, Anion Gap 11, Blood Urea Nitrogen 17, Creatinine 0.76, Estimat Glomerular Filtration Rate > 60, BUN/ Creatinine Ratio 22, Glucose Level 99, Calcium Level 8.3L, Magnesium Level 2.0 Microbiology 03/04/18 Blood Culture - Preliminary, Resulted No growth 03/05/18 MRSA Screen - Final, Complete MRSA not isolated 03/06/18 Gram Stain - Final, Resulted 03/06/18 Anaerobic Culture - Preliminary, Resulted No anaerobes isolated 03/06/18 Surgical Culture - Preliminary, Resulted Presumptive Capri Albicans Strep Or Related Genus Gram Positive Elliott Patient resulted labs reviewed. Pending Labs Laboratory Tests 03/09/18 05:27: Glucometer 97 03/09/18 05:30: White Blood Count 12.8, Red Blood Count 4.09, Hemoglobin 11.8, Hematocrit 35, Mean Corpuscular Volume 86, Mean Corpuscular Hemoglobin 29, Mean Corpuscular Hemoglobin Concent 34, Red Cell Distribution Width 12.4, Platelet Count 460, Mean Platelet Volume 10.1, Neutrophils (%) (Auto) 82, Lymphocytes (%) (Auto) 14 , Monocytes (%) (Auto) 4, Eosinophils (%) (Auto) 0, Basophils (%) (Auto) 0, Neutrophils # (Auto) 10.5, Lymphocytes # (Auto) 1.8, Monocytes # (Auto) 0.5, Eosinophils # (Auto) 0.0, Basophils # (Auto) 0.0, Sodium Level 141, Potassium Level 3.5, Chloride Level 111, Carbon Dioxide Level 19, Anion Gap 11, Blood Urea Nitrogen 17, Creatinine 0.76, Estimat Glomerular Filtration Rate > 60, BUN/ Creatinine Ratio 22, Glucose Level 99, Calcium Level 8.3, Magnesium Level 2.0 Discussion & Recommendations Discharge Planning: <30 minutes discharge planning Discharge Home Medications: Active Scripts Active Advocate Pen Needle (Pen Needle, Diabetic) 1 Each Dis.needle Each ACHS ac/hs Novolog Flexpen (Insulin Aspart) 300 Units/3 Ml Solution 10 Units SQ AC Levemir Flextouch (Insulin Detemir) 100 Unit/1 Ml Insuln.pen 20 Unit SQ HS Metformin HCl 500 Mg Tablet 500 Mg PO BID@07,17 Hydrocodone-Acetamin 5-325 mg (Hydrocodone/Acetaminophen) 1 Each Tablet 1 Tab PO Q4H PRN Reported Excedrin Extra Strength Caplet (Aspirin/Acetaminophen/Caffeine) 1 Each Tablet 1- 2 Tab PO BID PRN Amoxicillin 500 Mg Capsule 500 Mg PO Q8H 10 DAY SUPPLY FILLED 03-02-18 Metronidazole 500 Mg Tablet 500 Mg PO TID 5 DAY SUPPLY FILLED 03-04-18 Instructions to patient/family Please see electronic discharge instructions given to patient. 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
[2018-03-09] MEDS ORDERED: PEN-53 MC (10:37)
[2018-03-09] MEDS ORDERED: METF500T5 PO (10:37)
[2018-03-09] MEDS ORDERED: INSU100I14 SQ (10:37)
[2018-03-09] MEDS ORDERED: HYDR-3812 PO (10:37)
[2018-03-09] MEDS ORDERED: INSU100I29 SQ (10:37)
[2018-03-09 11:00] VITALS: BP 171/79
[2018-03-09] MEDS: chlorproMAZINE 25 MG (THORAZINE) TAB PO PRN (12:11)
[2018-03-09] MEDS ORDERED: CLIN150C17 PO (13:21)
[2018-03-09 15:00] VITALS: BP 150/88
--- NOTE | 2018-03-25 17:50 | CONSULTATION REPORT ---
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 I was called by the floor for consultation on the patient who has a left buccal space and submandibular space abscess. He has already previously had a tooth extracted by Dr. Malik here in [facility], but since then his swelling has increased as well as his fever and his white count. He has also been recently diagnosed as a diabetic and his blood sugar is 443. Subsequently, I am going to have him seen by anesthesia and continue working with his primary care doctor in an attempt to get his blood sugar down to where we can safely take him in the operating room and once they advise we will take him as soon as possible for drainage of his left buccal space and left submandibular region. At the present time, he can only open to 10 to 15 mm. His temperature is 101.7. His white count is 18,700. He is in airway distress at this point; however, I could say until we can surgically drain this, he will continue to worsen. Job ID: [id number] DocumentID: [id number] Dictated Date: 03/25/2018 14:18:41 Variety Performer Date: 03/25/2018 15:10:25 Dictated By: PHIL HAMPTON DDS
--- NOTE | 2018-03-25 18:01 | OPERATIVE REPORT ---
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 PREOPERATIVE DIAGNOSES: Left buccal space abscess as well as left submandibular abscess. POSTOPERATIVE DIAGNOSIS: Left buccal space abscess as well as left submandibular abscess. PROCEDURE: Incision and drainage extraorally of left buccal space abscess with drain placement as well as incision and drainage of left submandibular space abscess with drain placement. SURGEON: Dr. Phil Hampton. INSPECTOR WIRE ROPE: Amina Goldberg. ANESTHESIA: General endotracheal. COMPLICATIONS: There were no complications. ESTIMATED BLOOD LOSS: Minimal. FLUIDS: 800 mL of crystalloid. HISTORY OF PRESENT ILLNESS AND INDICATION FOR PROCEDURE: The patient is a 47-year-old essentially healthy white male, who was recently ____ in the last two days being diagnosed with diabetes. He had previously had tooth #[address] Delatorre here in [place]. However, at the present time, his swelling has increased in this region to the point that he has moderate to severe edema of the buccal space and moderate edema and swelling of his submandibular space. He does not have any floor of the mouth swelling at the present time. He can move his tongue without difficulty and no lateral pharyngeal space involvement at this time. He can only open to 10 mm. His white count is 18,000. He also was febrile. Subsequently, he has been placed in the hospital, given intravenous antibiotics and at this point, we are going to take him to operating room and drain his buccal and submandibular space abscess. The patient has been explained of his diagnosis, the opportunity for questions was given. They were answered and then he indeed elected for surgery at ____ operating time. DESCRIPTION OF PROCEDURE: The patient was taken to the operating room and placed on the operating table. The appropriate monitors were placed and anesthesia was induced via oral tracheal intubation without difficulty. Once this was secured, the surgeon left the room, scrubbed, returned, donned, sterile gowns and gloves and prepped and draped the patient in usual standard and sterile fashion. After this, we deposited local anesthesia in the left cheek just superior to the mandible and also anesthesia jet 2 fingerbreadths inferior to the inferior border of the mandible on the left side. After this, I used 15 blade to excise through the skin and subcuticular tissue and then used a hemostat to bluntly dissect into the abscess cavity. At this point, we took culture for Gram stain, anaerobic and aerobic cultures. We then flushed extensively for approximately 10 minutes with two-thirds saline and one-third hydrogen peroxide. I explored the wound to make sure that it was not going superior into the infratemporal fossa. This was not the case and then we put one red rubber catheter in there. After this, we then turned our attention to the submandibular space. Again, a 15 blade was used to excise through the skin and subcuticular tissue and I was then able to bluntly dissect into the abscess cavity and dissected medial to the mandible where there was involvement. After this, we copiously irrigated with normal saline again for 5 minutes to 10 minutes with hydrogen peroxide and saline mixture. At this point, we placed a red rubber catheter for drain. I examined him intraorally and did not appear to have any other signs of infection. After this, we placed a drain dressing. He was then allowed to emerge from his general anesthetic. We placed a throat pack prior to starting the procedure and this was removed. Once he was breathing spontaneously, he was extubated in the operating room and then transported to the recovery room where he was assessed to have stable vital signs, breathing spontaneously with a pulse ox of 99%. Job ID: [id number] DocumentID: [id number] Dictated Date: 03/25/2018 14:23:48 Pleater Date: 03/25/2018 18:00:29 Dictated By: PHIL HAMPTON DDS
--- NOTE | 2018-04-01 12:05 | Consultation ---
PHIL HAMPTON DDS 04/01/18 1205: History of Present Illness History of Present Illness Patient Consulted On(corey/time) 04/01/18 12:04 Allergies and Home Medications Allergies Coded Allergies: No Known Drug Allergies (Unverified , 03/04/18) Home Medications Aspirin/Acetaminophen/Caffeine 1 Each Tablet, 1-2 TAB PO BID PRN for PAIN-MILD, (Reported) Clindamycin HCl 150 Mg Capsule, 150 MG PO QID Prescribed by: CRISTELA GARCIA on 03/09/18 1321 Hydrocodone/Acetaminophen 1 Each Tablet, 1 TAB PO Q4H PRN for PAIN-MODERATE Prescribed by: MIIL JONES on 03/09/18 1037 Insulin Aspart 300 Units/3 Ml Solution, 10 UNITS SQ AC Prescribed by: MILI JONES on 03/09/18 1037 Insulin Detemir 100 Unit/1 Ml Insuln.pen, 20 UNIT SQ HS Prescribed by: MILI JONES on 03/09/18 1037 Metformin HCl 500 Mg Tablet, 500 MG PO BID@07,17 Prescribed by: MILI JONES on 03/09/18 1037 Past Vnijjzv-Grjrik-Wtqerw Hx Patient Social History Alcohol Use: Occasionally Uses Number of Drinks Today: 0 Alcohol Beverage of Choice: Beer Recreational Drug Use: No Smoking Status: Former Smoker (OCCASIONALLY SMOKED IN THE PAST) Recent Foreign Travel: No Contact w/Someone Who Travel: No Recent Infectious Disease Expo: No Recent Hopitalizations: No Physical Abuse: No Sexual Abuse: No Immunizations Up To Date PED Vaccines UTD: Yes Seasonal Allergies Seasonal Allergies: No Past Medical History Surgeries: Yes (RIGHT INGUINAL HERNIA--AGE 5 ; EYE SURGERY--AGE 5) Abdominal, Adenoidectomy, Eye Surgery, Tonsillectomy Respiratory: No Cardiac: No Neurological: No Genitourinary: No Gastrointestinal: No Musculoskeletal: Yes (RIGHT FOOT FX SEVERAL YEARS AGO) Fractures Endocrine: No HEENT: No Cancer: No Psychosocial: No Nursing Suicide Risk Score: 0 Integumentary: No Blood Disorders: No Adverse Reaction/Blood Tranf: No Family Medical History Diabetes mellitus (MOTHER) Diabetes (MOM) Physical Exam-General Problems Physical Exam Vital Signs Capillary Refill : Less Than 3 Seconds Clinical Quality Measures DVT/VTE Risk/Contraindication: Risk Factor Score Per Nursin RFS Level Per Nursing on Admit: 2=Moderate KATERIN VILLAR 04/06/18 0925: Allergies and Home Medications Allergies Coded Allergies: No Known Drug Allergies (Unverified , 03/04/18) Home Medications Aspirin/Acetaminophen/Caffeine 1 Each Tablet, 1-2 TAB PO BID PRN for PAIN-MILD, (Reported) Clindamycin HCl 150 Mg Capsule, 150 MG PO QID Prescribed by: CRISTELA GARCIA on 03/09/18 1321 Hydrocodone/Acetaminophen 1 Each Tablet, 1 TAB PO Q4H PRN for PAIN-MODERATE Prescribed by: MILI JOENS on 03/09/18 1037 Insulin Aspart 300 Units/3 Ml Solution, 10 UNITS SQ AC Prescribed by: MILI JONES on 03/09/18 1037 Insulin Detemir 100 Unit/1 Ml Insuln.pen, 20 UNIT SQ HS Prescribed by: MILI JONES on 03/09/18 1037 Metformin HCl 500 Mg Tablet, 500 MG PO BID@07,17 Prescribed by: MILI JONES on 03/09/18 1037 Past Lvyxaif-Igctak-Efwpfr Hx Family Medical History Diabetes mellitus (MOTHER) PHIL HAMPTON DDS Apr 01, 2018 12:05 KATERIN VILLAR Apr 06, 2018 09:25
--- NOTE | 2018-04-01 12:10 | Progress Note-Post Operative ---
Post-Operative Progess Note Surgeon (s)/Director Of Managed Services (s) Surgeon PHIL HAMPTON DDS Director Of Managed Services: jey reyes Pre-Operative Diagnosis left buccal space abcess, left submandibular abcess. Post-Operative Diagnosis same Procedure & Operative Findings Date of Procedure 04/01/18 Procedure Performed/Findings i and d left buccal space and left submandibular abcess Anesthesia Type geta Estimated Blood Loss Estimated blood loss (mL): minimal Specimens/Packing Specimens Removed none Packin drains PHIL HAMPTON DDS Apr 01, 2018 12:10 pm
--- NOTE | 2018-04-01 12:13 | Consultation ---
History of Present Illness History of Present Illness Patient Consulted On(corey/time) 03-09-18 12:11 Date Seen by Provider: Mar 20, 2018 Time Seen by Provider: 11:30 Reason for Visit: consult History of Present Illness abcess for 2 days Allergies and Home Medications Allergies Coded Allergies: No Known Drug Allergies (Unverified , 03/04/18) Home Medications Aspirin/Acetaminophen/Caffeine 1 Each Tablet, 1-2 TAB PO BID PRN for PAIN-MILD, (Reported) Clindamycin HCl 150 Mg Capsule, 150 MG PO QID Prescribed by: CRISTELA GARCIA on 03/09/18 1321 Hydrocodone/Acetaminophen 1 Each Tablet, 1 TAB PO Q4H PRN for PAIN-MODERATE Prescribed by: MILI JONES on 03/09/18 1037 Insulin Aspart 300 Units/3 Ml Solution, 10 UNITS SQ AC Prescribed by: MILI JONES on 03/09/18 1037 Insulin Detemir 100 Unit/1 Ml Insuln.pen, 20 UNIT SQ HS Prescribed by: MILI JONES on 03/09/18 1037 Metformin HCl 500 Mg Tablet, 500 MG PO BID@,17 Prescribed by: MILI JONES on 03/09/18 1037 Patient Home Medication List Home Medication List Reviewed: Yes Past Zbmcieh-Qkmben-Dqqpwe Hx Patient Social History Alcohol Use: Occasionally Uses Number of Drinks Today: 0 Alcohol Beverage of Choice: Beer Recreational Drug Use: No Smoking Status: Former Smoker (OCCASIONALLY SMOKED IN THE PAST) Recent Foreign Travel: No Contact w/Someone Who Travel: No Recent Infectious Disease Expo: No Recent Hopitalizations: No Physical Abuse: No Sexual Abuse: No Immunizations Up To Date PED Vaccines UTD: Yes Seasonal Allergies Seasonal Allergies: No Past Medical History Surgeries: Yes (RIGHT INGUINAL HERNIA--AGE 5 ; EYE SURGERY--AGE 5) Abdominal, Adenoidectomy, Eye Surgery, Tonsillectomy Respiratory: No Cardiac: No Neurological: No Genitourinary: No Gastrointestinal: No Musculoskeletal: Yes (RIGHT FOOT FX SEVERAL YEARS AGO) Fractures Endocrine: No HEENT: No Cancer: No Psychosocial: No Nursing Suicide Risk Score: 0 Integumentary: No Blood Disorders: No Adverse Reaction/Blood Tranf: No Family Medical History Diabetes mellitus (MOTHER) Diabetes (MOM) Physical Exam-General Problems Physical Exam Vital Signs Capillary Refill : Less Than 3 Seconds Clinical Quality Measures DVT/VTE Risk/Contraindication: Risk Factor Score Per Nursin RFS Level Per Nursing on Admit: 2=Moderate PHIL HAMPTON DDS Apr 01, 2018 12:13 pm
--- NOTE | 2018-04-01 12:14 | Consultation ---
History of Present Illness History of Present Illness Patient Consulted On(corey/time) 04/01/18 12:13 Time Seen by Provider: 09:00 Reason for Visit: consult History of Present Illness abcess for 2 days Allergies and Home Medications Allergies Coded Allergies: No Known Drug Allergies (Unverified , 03/04/18) Home Medications Aspirin/Acetaminophen/Caffeine 1 Each Tablet, 1-2 TAB PO BID PRN for PAIN-MILD, (Reported) Clindamycin HCl 150 Mg Capsule, 150 MG PO QID Prescribed by: CRISTELA GARCIA on 03/09/18 1321 Hydrocodone/Acetaminophen 1 Each Tablet, 1 TAB PO Q4H PRN for PAIN-MODERATE Prescribed by: MILI JONES on 03/09/18 1037 Insulin Aspart 300 Units/3 Ml Solution, 10 UNITS SQ AC Prescribed by: MILI JONES on 03/09/18 1037 Insulin Detemir 100 Unit/1 Ml Insuln.pen, 20 UNIT SQ HS Prescribed by: MILI JONES on 03/09/18 1037 Metformin HCl 500 Mg Tablet, 500 MG PO BID@,17 Prescribed by: MILI JONES on 03/09/18 1037 Patient Home Medication List Home Medication List Reviewed: Yes Past Xtsmkap-Soktku-Mlznpt Hx Patient Social History Alcohol Use: Occasionally Uses Number of Drinks Today: 0 Alcohol Beverage of Choice: Beer Recreational Drug Use: No Smoking Status: Former Smoker (OCCASIONALLY SMOKED IN THE PAST) Recent Foreign Travel: No Contact w/Someone Who Travel: No Recent Infectious Disease Expo: No Recent Hopitalizations: No Physical Abuse: No Sexual Abuse: No Immunizations Up To Date PED Vaccines UTD: Yes Seasonal Allergies Seasonal Allergies: No Past Medical History Surgeries: Yes (RIGHT INGUINAL HERNIA--AGE 5 ; EYE SURGERY--AGE 5) Abdominal, Adenoidectomy, Eye Surgery, Tonsillectomy Respiratory: No Cardiac: No Neurological: No Genitourinary: No Gastrointestinal: No Musculoskeletal: Yes (RIGHT FOOT FX SEVERAL YEARS AGO) Fractures Endocrine: No HEENT: No Cancer: No Psychosocial: No Nursing Suicide Risk Score: 0 Integumentary: No Blood Disorders: No Adverse Reaction/Blood Tranf: No Family Medical History Diabetes mellitus (MOTHER) Diabetes (MOM) Physical Exam-General Problems Physical Exam Vital Signs Capillary Refill : Less Than 3 Seconds Clinical Quality Measures DVT/VTE Risk/Contraindication: Risk Factor Score Per Nursin RFS Level Per Nursing on Admit: 2=Moderate PHIL HAMPTON DDS Apr 01, 2018 12:14 pm
== END 2018-03-09 15:00 | disposition home or self-care (01) | DRG 159 ==
LOC: ER 21:59 → 4TH 23:00 → UNDOADMIN 03-05 → 4TH 03-06 11:49
PROVIDERS: ADMIT Family Medicine; ATTEND Family Medicine
PROC: 0W933ZZ Drainage of Oral Cavity and Throat, Percutaneous Approach (ICD-10-PCS; 2018-03-06)
PROC: 0C943ZZ Drainage of Buccal Mucosa, Percutaneous Approach (ICD-10-PCS; principal; 2018-03-06 12:12)
DX: K12.2 Cellulitis and abscess of mouth (principal); K05.30 Chronic periodontitis, unspecified; E11.9 Type 2 diabetes mellitus without complications; D64.9 Anemia, unspecified; E83.51 Hypocalcemia; R00.1 Bradycardia, unspecified; E78.1 Pure hyperglyceridemia; E66.9 Obesity, unspecified; Z68.33 Body mass index [BMI] 33.0-33.9, adult; Z87.891 Personal history of nicotine dependence
CPT/HCPCS: 36415; 36600; 70355; 70487; 80048; 80053; 80061; 82150; 82805; 82962; 83036; 83605; 83690; 83735; 85007; 85025; 85027; 87040; 87070; 87075; 87081; 87205; 96361; 96365; 96375

== ENCOUNTER 2018-10-08 10:35 | Outpatient (CLI) | payer BC ==
[~2018-10-08] VITALS: Ht 175.3 cm; Wt 93.5 kg
[~2018-10-08 10:35] MED LIST: AMOX500C2 PO; ASPI-992 PO; CLIN150C17 PO; HYDR-3812 PO; INSU100I14 SQ; INSU100I29 SQ; METF-397 PO; METR-145 PO; PEN-53 MC
[2018-10-08] MEDS ORDERED: METF-397 PO (10:50)
[2018-10-08] MEDS ORDERED: GLYB5TAB6 PO (10:50)
[2018-10-08] MEDS ORDERED: ATOR20TA66 PO (10:50)
[2018-10-08 10:52] VITALS: BP 136/85
== END 2018-10-08 11:06 | disposition home or self-care (01) ==
LOC: PREOP 10:35
PROVIDERS: ATTEND Surgery
DX: Z01.818 Encounter for other preprocedural examination (principal)
CPT/HCPCS: 87081

== ENCOUNTER 2018-10-15 07:20 | Day surgery (SDC) | payer BC, OTHER ==
[~2018-10-15] VITALS: Ht 177.8 cm; Wt 93.1 kg
[~2018-10-15 07:20] MED LIST changes: +ATOR20TA66 PO; +GLYB5TAB6 PO
[2018-10-15 07:30] VITALS: BP 144/89
[2018-10-15] MEDS ORDERED: ceFAZolin 2 GM IV Premixed 50 ML IV ONE (07:30)
[2018-10-15] MEDS: LACTATED RINGERS 1,000 ML IV PRN ×2 (07:45→10:34)
[2018-10-15] MEDS ORDERED: LIDOCAINE/EPI 1%-1:100,000 (XYLOCAINE) 20ML ONE (08:28)
[2018-10-15] MEDS ORDERED: proPOfol 200 MG/20 ML (DIPRIVAN) VIAL IV ONE (08:33)
[2018-10-15] MEDS ORDERED: SEVOFLURANE (ULTANE) 15 ML INHAL SOLN ONE ×2 (08:33→10:54)
[2018-10-15] MEDS ORDERED: fentaNYL INJECTION 100 MCG/2 ML AMP ONE ×2 (08:33→11:01)
[2018-10-15] MEDS ORDERED: DEXAMETHASONE 10 MG/ML (DECADRON) 1 ML VIAL ONE (08:33)
[2018-10-15] MEDS ORDERED: ROCURONIUM 10 MG/ML 5 ML SYRINGE IV ONE (08:33)
[2018-10-15] MEDS ORDERED: ONDANSETRON 4 MG/2 ML (SDV) Z0FRAN ONE (08:33)
[2018-10-15] MEDS ORDERED: MIDAZOLAM 2 MG/2 ML (VERSED) VIAL ONE (08:34)
--- NOTE | 2018-10-15 09:49 | Progress Note-Pre Operative ---
Pre-Operative Progress Note H&P Reviewed The H&P was reviewed, patient examined and no changes noted. Time Seen by Provider: 09:44 Date H&P Reviewed: Oct 15, 2018 Time H&P Reviewed: 09:45 Pre-Operative Diagnosis: Incarcerated ZACK VERDUZCO DO Oct 15, 2018 09:49
[2018-10-15] MEDS ORDERED: BUPIVACAINE 0.5% 30 ML (SENSORCAINE) VIAL ONE (10:20)
[2018-10-15] MEDS ORDERED: ONDANSETRON 4 MG/2 ML (SDV) Z0FRAN IVP PRN (10:30)
[2018-10-15] MEDS ORDERED: morphine INJ 10 MG/ML 1ML (SYR OR VIAL) IVP ONE (10:30)
[2018-10-15] MEDS ORDERED: HYDROmorphone 2 MG/ML VIAL (DILAUDID) IV ONE (10:30)
[2018-10-15] MEDS ORDERED: NEOSTIGMINE 1 MG/ML 5 ML SYRINGE ONE (10:47)
[2018-10-15] MEDS ORDERED: GLYCOPYRROLATE 0.2 MG/ML (ROBINUL) 2 ML VIAL ONE (10:47)
--- NOTE | 2018-10-15 11:04 | Progress Note-Post Operative ---
Post-Operative Progess Note Surgeon (s)/Commercial Singer (s) Surgeon ZACK DIXON DO Commercial Singer: Marlo Pre-Operative Diagnosis Incarcerated [facility] Post-Operative Diagnosis Same plus spermatic cord mass Procedure & Operative Findings Date of Procedure 10/15/18 Procedure Performed/Findings [facility] with mesh placement Exc spermatic cord lesion Anesthesia Type GET Estimated Blood Loss Estimated blood loss (mL): scant Specimens/Packing Specimens Removed hernia sac spermatic cord lesion ZACK DIXON DO Oct 15, 2018 11:04
[2018-10-15] MEDS ORDERED: ACHD5005 PO (11:06)
--- NOTE | 2018-10-15 11:07 | Discharge Inst-Surgical ---
Discharge Inst-Surgical Depart Medication/Instructions New, Converted or Re-Newed RX: RX Given to Pt/Family Patient Instructions Follow up Appt: Make appointment for 1 week. [phone] Instructions: No lifting greater than 20 pounds. No strenuous activity. May shower in 24 hours, no tub bath or soaking. Use incentive spirometer at home as directed. No Smoking Skin/Wound Care: May remove bandages in am. You need to leave the Dermabond on incision it will fall off on it's own. Symptoms to Report: Appetite Changes, Extremity Discoloration, Numbness/Tingling, Swelling Increased , Bleeding Excessive, Eyesight Changes, Pain Increased, Urine Color Change, Constipation(Persistent), Fever over 101 degree F, Pain/Pressure in chest, Urinating Difficulty, Cough Up/Vomit Blood, Heart Beat Irreg/Pounding, Pain/ Pressure in jaw, Cramps in feet or legs, Lightheadedness, Pain/Pressure in shoulder, Diarrhea(Persistent), Memory Changes Suddenly, Questions/Concerns, Weight gain consecutive days, Dizziness/Fainting, Nausea/Vomiting, Shortness of Breath, Weight gain over 2 pounds If questions or concerns contact your physician Or seek help at emergency department. Activity Activity as Tolerated: Yes Activity Instructions: Avoid Stress to Incision Driving Instructions: No Driving/Refer to Dr. Mcghee Discharge Diet: No Restrictions Diet After 24 Hours: Clear Liquid if Nauseous If Any Problems/Questions/Issu: Contact Your Physician, Go to Emergency Room Skin/Wound Care Infection Signs and Symptoms: Increased Redness, Foul Odor of Wound, Increased Drainage, Skin Itchy or Has a Rash, Increased Swelling, Temperature Above 101 F Bathing Instructions: Shower Stitches/[place]/Dermabond Dis: Dermabond Ice Pack: Ice On and Off Site (as needed for pain) ZACK DIXON DO Oct 15, 2018 11:06
[2018-10-15 12:15] VITALS: BP 127/85
[2018-10-15 12:20] VITALS: BP 127/85
[2018-10-15] MEDS ORDERED: HYDROcodone/APAP 5 MG/325 MG (LORTAB) TAB ONE (12:38)
[2018-10-15 12:45] VITALS: BP 110/69
[2018-10-15] MEDS ORDERED: HYDROcodone/APAP 5 MG/325 MG (LORTAB) TAB PO ONE (12:45)
[2018-10-15 13:15] VITALS: BP 128/95
--- NOTE | 2018-10-15 18:01 | OPERATIVE REPORT ---
DATE OF SERVICE: 10/15/2018 PREOPERATIVE DIAGNOSIS: Left incarcerated inguinal hernia. POSTOPERATIVE DIAGNOSES: 1. Left incarcerated inguinal hernia, direct. 2. Spermatic cord lesion. SURGEON: Erasmo Nava DO INFORMATION SYSTEMS ADMINISTRATOR: Ocsar Sellers DO ANESTHESIA: General endotracheal tube. SPECIMEN: 1. Hernia sac. 2. Spermatic cord lesions. BLOOD LOSS: Scant. FLUIDS: Per anesthesia. POSTOPERATIVE CONDITION: Stable. INDICATION FOR PROCEDURE: The patient is a 48-year-old male, who has pain and bulge in left inguinal region, diagnosed with left incarcerated inguinal hernia. FINDINGS: The patient had a left incarcerated inguinal hernia, it was a direct hernia. He also had a mass on spermatic cord, which was removed and sent to pathology. PROCEDURE NOTE: After informed consent was obtained, the patient was brought to the operating room, placed on the table in supine position, sterilely prepped and draped in normal fashion. Local lidocaine used for an ilioinguinal nerve block as well as pubic tubercle block and then infiltrated left inguinal region with local. I made an incision with #15 blade, carried down through skin and subcutaneous tissue, then deepened down to subcutaneous tissue with Bovie electrocautery, down to the fascia of the external oblique. External oblique fascia was then infiltrated with local and incised to the external inguinal ring with Bovie electrocautery, found a mass on the top of the spermatic cord, found the vas deferens, made sure this was well out of the way and then removed this mass and sent this to pathology. I was able to get under the cord and cord structures at the pubic tubercle, placed a [place] drain, put in the inferolateral direction and start dissecting out looking superiorly and medially, found a large hernia sac, but it looked like it was more of a direct sac even though it was attached to the port, able to finally get it from the cord and again, it looked like it was a direct hernia sac, opened the sac. There was a lot of omentum and it looked like possibly bowel or bladder, carefully started pushing this down, pushing this out of the away and then once this was all reduced out of the hernia sac, I then elected to ligate the sac. We used an 0 Vicryl pursestring to close it tying this twice to tie it down and then cut the sac off and watch it retract. I then elected to place a left-sided Parietex mesh, trimmed it to fit into the inguinal canal, sutured one to the pubic tubercle, encircled the cord with a precut hole and then placed the rest of the mesh up under the external oblique fascia. It laid in very nicely, copiously irrigated this with normal saline, suctioned this out and then closed the external oblique fascia with 3-0 Vicryl running suture, thereby recreating the external inguinal ring. The internal inguinal ring had been recreated by the mesh. I then closed Deborah's fascia with 3-0 Vicryl with two interrupted sutures. I then closed the skin with 4-0 undyed Monocryl in running subcuticular fashion. Area was cleaned and dried. Dermabond was placed as well as a pressure dressing. The patient was then transferred to recovery room in stable condition. The sponge, instrument and needle counts were correct at the end of the case. Dr. Sellers assisted in this case helping to make incisions, closed the incision, identify anatomy and moving anatomy out of the way. Job ID: [id number] DocumentID: [id number] Dictated Date: 10/15/2018 11:10:54 Project Coordinator Date: 10/15/2018 18:01:00 Dictated By: ERASMO NAVA DO
== END 2018-10-15 13:15 | disposition home or self-care (01) ==
LOC: SDC 07:20
PROVIDERS: ATTEND Surgery
DX: K40.30 Unilateral inguinal hernia, with obstruction, without gangrene, not specified as recurrent (principal); D17.6 Benign lipomatous neoplasm of spermatic cord; E11.9 Type 2 diabetes mellitus without complications; E78.5 Hyperlipidemia, unspecified; Z79.84 Long term (current) use of oral hypoglycemic drugs; Z79.899 Other long term (current) drug therapy
CPT/HCPCS: 82962; 88302; 88304; 94664